=== PATIENT | male | born 1960 | race Caucasian/White ===

== ENCOUNTER 2019-03-25 19:55 | Emergency (ER) | payer OTHER ==
[2019-03-25 20:12] VITALS: BP 144/90; PULSE 86; TEMP 98.2; BMI 31.1
--- NOTE | 2019-03-25 22:48 | PDOC ---
Documentation entered by Ynes Klein SCRIBE, acting as scribe for Wilfredo Conley MD. Wilfredo Conley MD: This documentation has been prepared by the madieibe, Ynes Klein SCRIBE, under my direction and personally reviewed by me in its entirety. I confirm that the documentation accurately reflects all work, treatment, procedures, and medical decision making performed by me. History of Present Illness - General Chief Complaint: Laceration Stated Complaint: CUT LEFT INDEX FINGER Time Seen by Provider: 03/25/19 19:58 History Source: Patient Exam Limitations: No Limitations - History of Present Illness Initial Comments: 03/25/19 20:09 The patient is a 58-year-old male with a past medical history significant for HTN who presents to the emergency department with a laceration to the left index finger. The patient reports he was using a clean bread knife to cut bread when he accidentally sustained a cut to his index finger. Denies numbness, tingling, or loss of sensation. Allergies: NKA Past History - Past Medical History Allergies/Adverse Reactions: Allergies Allergy/AdvReac Type Severity Reaction Status Date / Time No Known Allergies Allergy Verified 03/25/19 19:56 Home Medications: Ambulatory Orders Bimatoprost [Lumigan] 1 drop OU DAILY 11/26/11 Valsartan 320 mg PO DAILY 03/25/19 Anemia: No Asthma: No Cancer: No Cardiac Disorders: No CVA: No COPD: No CHF: No Dementia: No Diabetes: No GI Disorders: No Disorders: No HTN: Yes Hypercholesterolemia: No Liver Disease: No Seizures: No Thyroid Disease: No - Surgical History Abdominal Surgery: No Appendectomy: No Cardiac Surgery: No Cholecystectomy: No Lung Surgery: No Neurologic Surgery: No Orthopedic Surgery: No - Immunization History Immunization Up to Date: Yes - Psycho Social/Smoking Cessation Hx Smoking History: Never smoked Have you smoked in the past 12 months: No Information on smoking cessation initiated: No Hx Alcohol Use: Yes (OCCAS.) Drug/Substance Use Hx: No Substance Use Type: Alcohol Hx Substance Use Treatment: No Review of Systems - Review of Systems Able to Perform ROS?: Yes Comments:: 03/25/19 20:09 Constitutional - Pt denies Fever, Chills, weakness, HEENT: denies vision changes, sore throat Respiratory: Denies cough, sob, hemoptysis Cardiac: denies chest pain, palpitations, light headedness, leg swelling Abd/GI: denies abd pain, nausea, vomiting, blood per rectum, melena, diarrhea : denies dysuria, frequency, discharge Musculskelatal - +left index finger laceration. denies back pain, joint swelling skin - denies bruising, erythema, rash neurological: denies headache, numbness, focal weakness, tingling, ataxia, weakness hematologic: denies anemia, easy bruising, easy bleeding *Physical Exam - Vital Signs Last Vital Signs Temp Pulse Resp BP Pulse Ox 98.2 F 86 16 144/90 98 03/25/19 19:58 03/25/19 19:58 03/25/19 19:58 03/25/19 19:58 03/25/19 19:58 - Physical Exam Comments: 03/25/19 20:24 CONSTITUTIONAL: Well-appearing; well-nourished; in no apparent distress HEAD: Normocephalic; atraumatic EYES: PERRL; EOM intact ENMT: External appears normal EXT: Normal ROM in all four extremities SKIN: +2cm linear horizontal laceration to the left index finger. Warm, dry, no rash Medical Decision Making - Medical Decision Making 03/26/19 04:48 lac reapired with topical skin adhesive tetanus utd analgesia splint Discharge - Discharge Information Problems reviewed: Yes Clinical Impression/Diagnosis: Laceration Condition: Good Disposition: HOME - Follow up/Referral - Patient Discharge Instructions Patient Printed Discharge Instructions: DI for Laceration Repair With Dermabond - Post Discharge Activity
== END 2019-03-25 21:28 | disposition home or self-care (01) ==
LOC: FER 19:55
PROC: 0HQGXZZ Repair Left Hand Skin, External Approach (ICD-10-PCS; principal; 2019-03-25)
DX: S61.211A Laceration without foreign body of left index finger without damage to nail, initial encounter (principal); W26.0XXA Contact with knife, initial encounter; Y93.89 Activity, other specified; Y92.9 Unspecified place or not applicable; I10 Essential (primary) hypertension
CPT/HCPCS: 99281-25

== ENCOUNTER 2023-04-13 06:33 | Day surgery (SDC) | payer OTHER ==
[2023-04-07 13:06] VITALS: BMI 34.0
[2023-04-13] MEDS ORDERED: PHENYLEPHRINE/KETOROLAC 4 ML VIAL IO ONE (07:15)
[2023-04-13] MEDS ORDERED: LIDOCAINE HCL/PF 1% SDV 5ML VIAL ONE (07:15)
[2023-04-13] MEDS ORDERED: EPINEPHrine/PF 1 MG/1 ML (1:1,000) AMPULE ONE (07:15)
[2023-04-13] MEDS ORDERED: TETRACAINE 0.5% OPHTH SOLN 2 ML BOTTLE ONE (07:16)
[2023-04-13] MEDS ORDERED: NEO/POLYMYX B SULF/DEXAMETH OPHTHALMIC 5ML BOTTLE ONE (07:16)
[2023-04-13] MEDS ORDERED: BSS (NA/CA/MG/K) BALANCED SALT SOLUTION OPHTH SOLN 15 ML BOTTLE ONE (07:16)
[2023-04-13] MEDS ORDERED: CARBACHOL 0.01% INTRA-OCULAR 1.5 ML VIAL ONE (07:16)
[2023-04-13] MEDS ORDERED: TRYPAN BLUE 0.5 ML DISP.SYRIN ONE (07:16)
[2023-04-13] MEDS: TROPICAMIDE 1% OPHTH SOLN 15 ML BOTTLE ONE ×3 (07:30→07:40)
[2023-04-13] MEDS: PHENYLEPHRINE 2.5% OPTHALMIC DROP 2ML BOTTLE ONE ×3 (07:30→07:40)
[2023-04-13] MEDS: CIPROFLOXACIN HCL 0.3% OPHTH 2.5ML BOTTLE ONE ×3 (07:30→07:40)
[2023-04-13] MEDS: CYCLOPENTOLATE 2% OPHTH SOLN 2 ML BOTTLE ONE ×3 (07:30→07:40)
[2023-04-13] MEDS ORDERED: MIDAZOLAM HCL 2 MG/2 ML SINGLE DOSE VIAL ONE (07:49)
[2023-04-13] MEDS ORDERED: ONDANSETRON 4 MG/2 ML VIAL ONE (08:25)
[2023-04-13 08:59] VITALS: TEMP 97.2
[2023-04-13 09:23] VITALS: BP 134/76; PULSE 87; RESP 18
== END 2023-04-13 09:23 | disposition home or self-care (01) ==
LOC: FASU 06:33
PROVIDERS: ATTEND Ophthalmology
PROC: 08RJ3JZ Replacement of Right Lens with Synthetic Substitute, Percutaneous Approach (ICD-10-PCS; principal; 2023-04-13 08:24)
DX: H26.8 Other specified cataract (principal)
CPT/HCPCS: 66984; V2632; J1097

== ENCOUNTER 2023-08-17 20:16 | Emergency (ER) | payer OTHER ==
[2023-08-17 20:38] VITALS: BMI 31.1
[2023-08-17] MEDS ORDERED: ACETAMINOPHEN INJECTION 100 ML IVPB ONE (20:56)
[2023-08-17 21:04] LABS: EPITHELIAL CELLS 0-5 /hpf
[2023-08-17] MEDS: SODIUM CHLORIDE 1,000 ML IV ONE (21:09)
[2023-08-17] MEDS: ACETAMINOPHEN 325 MG TABLET (FP) PO ONE (21:10)
[2023-08-17 21:32] LABS: HEMATOCRIT 44.7 % (35.4-49); MCH 31.8 pg (25.7-33.7); MCHC 33.6 g/dl (32.0-35.9); MEAN CELL VOLUME 94.5 fl (80-96); MEAN PLT VOLUME 8.9 fl (7.5-11.1); PLATELET COUNT 134.5 10^3/uL (134-434); RBC 4.73 10^6/uL (4.00-5.60); WHITE BLOOD COUNT 5.3 10^3/uL (4.0-10.8)
[2023-08-17 21:46] LABS: ALBUMIN 4.8 g/dl (3.4-5.0); BILIRUBIN,TOTAL 0.8 mg/dl (0.2-1); CALCIUM 9.9 mg/dl (8.5-10.1); POTASSIUM 3.8 mmol/L (3.5-5.1); TOT PROT 6.9 g/dl (6.4-8.2)
[2023-08-17 22:05] VITALS: BP 154/94; RESP 17; TEMP 99.7
[2023-08-17 22:24] LABS: VENOUS BASE EXCESS 1.1 mmol/L (-2-2); VENOUS PCO2 35.9 mmHg (38-52); VENOUS PH 7.454 (7.310-7.410)
[2023-08-17 22:25] LABS: PLATELET ESTIMATE DECREASED
[2023-08-17 23:08] VITALS: PULSE 97
== END 2023-08-17 23:10 | disposition home or self-care (01) ==
LOC: FER 20:16
PROC: 3E0337Z Introduction of Electrolytic and Water Balance Substance into Peripheral Vein, Percutaneous Approach (ICD-10-PCS; principal; 2023-08-17)
DX: R05.9 Cough, unspecified (principal); R50.9 Fever, unspecified; R31.9 Hematuria, unspecified; J10.1 Influenza due to other identified influenza virus with other respiratory manifestations; Z20.822 Contact with and (suspected) exposure to COVID-19
CPT/HCPCS: 0241U-QW; 36415; 71045-TC-FY; 80053; 81003; 81015; 82803; 83605; 85027; 87040; 87086; 99284-25